=== PATIENT | female | born 1975 | race Caucasian/White ===

== ENCOUNTER 2021-07-22 19:58 | Emergency (ER) | payer OTHER ==
[~2021-07-22] VITALS: Ht 160 cm; Wt 64.4 kg
[2021-07-22 20:15] VITALS: BP 124/76
[2021-07-22 21:20] VITALS: BP 124/76
--- NOTE | 2021-07-22 21:20 | NUR ---
Patient discharged with v/s stable with CHP. Written and verbal after care instructions given and explained. Patient verbalized understanding. Ambulatory with steady gait. All questions addressed prior to discharge. Advised to follow up with PMD.
== END 2021-07-22 21:20 ==
LOC: MED 19:58
DX: Z02.89 Encounter for other administrative examinations (principal)
CPT/HCPCS: 71045; 99283